=== PATIENT | male | born 2000 | race Caucasian/White ===

== ENCOUNTER 2021-05-17 13:48 | Emergency (ER) | payer OTHER, SELFPAY ==
[2021-05-17 13:53] VITALS: BP 154/96; PULSE 91; RESP 16; TEMP 36.2; O2SAT 100
--- NOTE | 2021-05-17 14:31 | ED.GENADULT ---
HPI - General Adult General Chief complaint: Wound/Laceration Stated complaint: laceration Time Seen by Provider: 05/17/21 14:08 Source: patient and RN notes reviewed Mode of arrival: ambulatory Limitations: no limitations History of Present Illness HPI narrative: Patient is a 20-year-old male who presents with right knee laceration that occurred just prior to arrival patient walked into a metal object lacerating the anterior right knee patient is unsure to his tetanus status patient notes mild aching pain patient denies other injuries or complaints presents in no distress resting comfortably in the room Related Data Home Medications Medication Instructions Recorded Confirmed No Home Medications 05/17/21 05/17/21 Allergies Allergy/AdvReac Type Severity Reaction Status Date / Time No Known Allergies Allergy Verified 05/17/21 13:59 Review of Systems Review of Systems: All systems reviewed & are unremarkable except as noted in HPI and below PMFSH Surgical History Surgical History History of appendectomy Social History Social History (Updated 05/17/21 @ 14:32 by Latrell Shin PA-C) Smoking status: Never smoker Gender identity (if verbalized by the patient): Male Exam Narrative: Exam Narrative: GENERAL: Well-appearing, well-nourished, and in no acute distress. HEAD: Normocephalic, atraumatic. EYES: PERRLA and EOMI. ENT: Nares clear, no rhinorrhea or epistaxis. Mucous membranes moist. EXTREMITIES: Normal range of motion. No edema. 2 cm superficial linear laceration anterior right knee SKIN: Warm, dry, no rash. NEURO: No focal deficits. Alert and oriented x3. Neurovascularly intact PSYCH: Normal mood and affect. Course Course Emergency Course: Patient evaluated for knee laceration and closure in the emergency department will follow up on an outpatient basis Vital Signs Vital signs: Vital Signs Temperature 97.2 F L 05/17/21 13:53 Pulse Rate 91 05/17/21 13:53 Respiratory Rate 16 05/17/21 13:53 Blood Pressure 154/96 H 05/17/21 13:53 Pulse Oximetry 100 05/17/21 13:53 Temperature 97.2 F L 05/17/21 13:53 Pulse Rate 91 05/17/21 13:53 Respiratory Rate 16 05/17/21 13:53 Blood Pressure 154/96 H 05/17/21 13:53 Pulse Oximetry 100 05/17/21 13:53 Procedures Laceration Laceration 1: Date: 05/17/21 Time: 14:33 Site: lower extremity Side (If applicable): right Size (cm): 2 Description: linear Depth: simple, single layer Pre-repair: wound explored, irrigated and irrigated extensively ====== Skin Level ====== Skin layer closed with: meredith Number of sutures: 3 ====== Subcutaneous Layer ====== ====== Muscle Layer ====== ====== Tendon Layer ====== Dressing: Nonadhesive antibiotic ointment 4 x 4 and Coban placed post procedure Medical Decision Making Vital Signs Vital Signs: Vital Signs Temperature 97.2 F L 05/17/21 13:53 Pulse Rate 91 05/17/21 13:53 Respiratory Rate 16 05/17/21 13:53 Blood Pressure 154/96 H 05/17/21 13:53 Pulse Oximetry 100 05/17/21 13:53 Temperature 97.2 F L 05/17/21 13:53 Pulse Rate 91 05/17/21 13:53 Respiratory Rate 16 05/17/21 13:53 Blood Pressure 154/96 H 05/17/21 13:53 Pulse Oximetry 100 05/17/21 13:53 Discharge Plan Discharge Clinical Impression: Laceration Patient Disposition: Home, Self-Care Condition: Stable Instructions: Antibiotic Form, Laceration (ED) Additional Instructions: Keep wound clean and dry. Do not soak, take baths, or swim until wound is completely healed. If any signs of infection such as redness, swelling, increasing pain, drainage of purulent discharge, streaks up your extremity develop, seek medical attention immediately. Followup with your primary care provider in [7] days for suture removal. [] Prescriptions: N
== END 2021-05-17 15:22 | disposition home or self-care (01) ==
PROVIDERS: Emergency Provider Emergency Medicine
DX: S81.012A Laceration without foreign body, left knee, initial encounter (principal); W26.9XXA Contact with unspecified sharp object(s), initial encounter
CPT/HCPCS: 12001; 99282